=== PATIENT | male | born 1995 | race African-American/Black ===

== ENCOUNTER 2022-04-11 02:51 | Emergency (ER) | payer SELFPAY ==
[~2022-04-11] VITALS: Ht 190.5 cm; Wt 82.6 kg
[2022-04-11] MEDS ORDERED: IV NS 0.9% 1,000 ML BAG IV ONE (03:00)
[2022-04-11] MEDS ORDERED: MORPHINE SULFATE INJ 2 MG/ML DISP.SYRIN IV ONE (03:00)
[2022-04-11] MEDS ORDERED: ONDANSETRON HCL/PF 4 MG/2 ML VIAL IVP ONE (03:00)
[2022-04-11] MEDS ORDERED: MORPHINE SULFATE INJ 4 MG/ML DISP.SYRIN ONE (03:03)
[2022-04-11] MEDS ORDERED: ONDANSETRON HCL/PF 4 MG/2 ML VIAL ONE (03:03)
--- NOTE | 2022-04-11 03:04 | NUR ---
[facility] PAGED [facility] [employer] PROFESSOR SAM WILL CALLED BACK
[2022-04-11 03:11] VITALS: BP 109/52
--- NOTE | 2022-04-11 03:14 | NUR ---
[facility] PAGED ACCEPTED AT HAPPY REPORT GIVEN TO ED CHARGE NURSE VALDO
--- NOTE | 2022-04-11 03:27 | NUR ---
REPROT GIVEN TO [id number] AT BEDSIDE 911 TRANSFER
[2022-04-11] MEDS ORDERED: TDAP [DIPH/PERTUSSIS/TET] 0.5 ML VIAL IM ONE (03:30)
--- NOTE | 2022-04-11 03:30 | NUR ---
IV LINE ESTABLISHED, RAC 20G AND RFA20G
== END 2022-04-11 03:30 ==
LOC: ER 02:59
DX: S71.132A Puncture wound without foreign body, left thigh, initial encounter (principal); S51.832A Puncture wound without foreign body of left forearm, initial encounter; W34.00XA Accidental discharge from unspecified firearms or gun, initial encounter; Y93.89 Activity, other specified; Y92.89 Other specified places as the place of occurrence of the external cause; Y99.8 Other external cause status
CPT/HCPCS: 99284; 96374; 96361; 96375; 73090; J2270; J2405; J7030 ×2